=== PATIENT | female | born 1930 | race Caucasian/White ===

== ENCOUNTER 2017-10-09 08:58 | Day surgery (SDC) | payer MEDICARE, BC ==
[~2017-10-09] VITALS: Ht 167.6 cm; Wt 82.5 kg
[~2017-10-09 08:58] MED LIST: ALBU3IS INH; ALBU90OI61 INH; BREO ELLIPTA 11 EACH IH; CALCAVITDA PO; CALMAGZIN; CIPR500 PO; DENAVIR TOP; DOCU100 PO; ESCI10 PO; ESCI5; GLUC500; LEVA.63IS INH; LEVSOD100; LEVSOD125 PO; LORA10 PO; MOVE FREE JOIN1 EACH PO; MULVIT PO; MYRBETRIQ50 MG PO; Norco 5-325 Ta1 EACH PO; OMEP20ER PO; PRED10; SULTRIDS PO; TIOT18 INH; TOCO400 PO; TRAZ50 PO; [UNRECOGNIZED DRUG - OTHER]
[2017-10-09] MEDS ORDERED: GLUC500 (09:46)
[2017-10-09] MEDS ORDERED: Bactrim 400-801 EACH PO (09:47)
[2017-10-09] MEDS ORDERED: ESTR2 PO (09:49)
[2017-10-09] MEDS ORDERED: BREO ELLIPTA 21 EACH (09:49)
[2017-10-09] MEDS ORDERED: AEROECLIPSE II1 EACH (09:49)
[2017-10-09] MEDS ORDERED: Omeprazole20 M1 (09:50)
== END 2017-10-09 10:17 | disposition home or self-care (01) ==
LOC: ORSCSDS 08:58
PROVIDERS: Anesthesiology
PROC: 3E0R33Z Introduction of Anti-inflammatory into Spinal Canal, Percutaneous Approach (ICD-10-PCS; principal; 2017-10-09 10:00)
DX: M51.16 Intervertebral disc disorders with radiculopathy, lumbar region (principal); J45.909 Unspecified asthma, uncomplicated; I10 Essential (primary) hypertension; K21.9 Gastro-esophageal reflux disease without esophagitis; F32.9 Major depressive disorder, single episode, unspecified; Z79.899 Other long term (current) drug therapy
CPT/HCPCS: J1040

== ENCOUNTER 2017-11-20 07:38 | Day surgery (SDC) | payer MEDICARE, BC ==
[~2017-11-20] VITALS: Ht 167.6 cm; Wt 82.7 kg
[~2017-11-20 07:38] MED LIST changes: +AEROECLIPSE II1 EACH; +BREO ELLIPTA 21 EACH; +Bactrim 400-801 EACH PO; +ESTR2 PO; +Omeprazole20 M1
== END 2017-11-20 10:46 | disposition home or self-care (01) ==
LOC: ORSCSDS 07:38
PROVIDERS: Podiatrist Foot & Ankle Surgery
PROC: 0L8W0ZZ Division of Left Foot Tendon, Open Approach (ICD-10-PCS; principal; 2017-11-20 08:45)
PROC: 0L8V0ZZ Division of Right Foot Tendon, Open Approach (ICD-10-PCS; principal; 2017-11-20 08:45)
DX: M20.42 Other hammer toe(s) (acquired), left foot (principal); M20.41 Other hammer toe(s) (acquired), right foot; E03.9 Hypothyroidism, unspecified; J44.9 Chronic obstructive pulmonary disease, unspecified; Z79.899 Other long term (current) drug therapy
CPT/HCPCS: J0171; J0690; J2250; J3010

== ENCOUNTER → 2018-01-25 | Outpatient (CLI) | payer MEDICARE, BC | LOC: LAB 15:00 → LAB SHORT 15:00 | DX: R35.0 Frequency of micturition (principal); R32 Unspecified urinary incontinence | CPT/HCPCS: 87077; 87086; 87186 ==

== ENCOUNTER 2018-03-04 07:33 | Day surgery (SDC) | payer MEDICARE, BC ==
[~2018-03-04] VITALS: Ht 167.6 cm; Wt 80.5 kg
[2018-03-04] MEDS ORDERED: BUSP15 (07:53)
== END 2018-03-04 08:39 | disposition home or self-care (01) ==
LOC: ORSCSDS 07:33
PROVIDERS: Anesthesiology
PROC: 3E0R33Z Introduction of Anti-inflammatory into Spinal Canal, Percutaneous Approach (ICD-10-PCS; principal; 2018-03-04 08:30)
DX: M51.16 Intervertebral disc disorders with radiculopathy, lumbar region (principal); I10 Essential (primary) hypertension; J45.909 Unspecified asthma, uncomplicated; F32.9 Major depressive disorder, single episode, unspecified; K21.9 Gastro-esophageal reflux disease without esophagitis; J44.9 Chronic obstructive pulmonary disease, unspecified; Z79.899 Other long term (current) drug therapy
CPT/HCPCS: J1040

== ENCOUNTER → 2018-11-27 | Outpatient (CLI) | payer MEDICARE, BC ==
[~2018-11-27] MED LIST changes: +BUSP15
[2018-11-27 11:34] LABS: BASOPHILS ABSOLUTE AUTO 0.05 K/mm3 (0.00-0.23); BASOPHILS PERCENT AUTO 1 % (0-2); EOSINOPHILS PERCENT AUTO 8 % (0-6); Hematocrit 34.9 % (33.0-51.0); Hemoglobin 11.6 g/dL (11.5-16.0); IMMATURE GRAN ABSOLUTE AUTO 0.01 K/mm3 (0.00-0.10); IMMATURE GRAN PERCENT AUTO 0 % (0-1); LYMPHOCYTES ABSOLUTE AUTO 1.39 K/mm3 (0.84-5.20); LYMPHOCYTES PERCENT AUTO 27 % (21-46); MONOCYTES ABSOLUTE AUTO 0.53 K/mm3 (0.16-1.47); MONOCYTES PERCENT AUTO 10 % (4-13); Mean Corpuscular HGB 31.9 pg (26.0-34.0); Mean Corpuscular HGB Conc 33.2 g/dL (31.5-36.5); Mean Corpuscular Volume 96 fL (80-100); Mean Platelet Volume 9.8 fL (9.1-12.4); NEUTROPHILS PERCENT AUTO 53 % (41-73); Platelet Count 210 K/mm3 (150-400); RDW Coefficient Variation 12.4 % (11.7-14.2); RDW Standard Deviation 43.1 fL (35.1-46.3); Red Blood Cell Count 3.64 M/mm3 (3.80-5.20); White Blood Cell Count 5.08 K/mm3 (4.00-11.30)
[2018-11-27 11:51] LABS: Alanine Aminotransfer (ALT/SGP 15 U/L (12-78); Albumin, Blood 3.2 g/dL (3.4-5.0); Albumin/Globulin Ratio 0.9 (0.8-1.8); Alk Phos 56 U/L (40-126); Anion Gap 9 mmol/L (6-16); Aspartate Aminotrans (AST/SGOT 18 U/L (12-37); Bilirubin, Total 0.4 mg/dL (0.1-1.0); Blood Urea Nitrogen 16 mg/dL (8-24); Bun/Creatinine Ratio 22.2 (12.0-20.0); CO2, Blood 28 mmol/L (21-32); CPK Creatine Kinase 74 U/L (26-192); Chloride, Blood 105 mmol/L (98-108); Creatinine, Blood 0.72 mg/dL (0.40-1.00); Free Thyroxine 0.96 ng/dL (0.70-1.60); Globulin, Blood 3.7 g/dL (2.2-4.0); Glomerular Filtration Rate >60 (60-); Glucose, Blood 79 mg/dL (70-99); Potassium, Blood 3.5 mmol/L (3.5-5.5); Sodium, Blood 142 mmol/L (136-145); Thyroid Stimulating Hormone 2.862 uIU/mL (0.360-4.800); Total Protein, Blood 6.9 g/dL (6.4-8.2)
[2018-11-27 11:52] LABS: Troponin I <0.017 ng/mL (0.000-0.040)
== END | disposition home or self-care (01) ==
LOC: LAB EV 11:28 → LAB SHORT 11:28
PROVIDERS: General Practice
DX: E03.9 Hypothyroidism, unspecified (principal); R06.00 Dyspnea, unspecified
CPT/HCPCS: 80053; 82550; 83880; 84439; 84443; 84484; 85025

== ENCOUNTER 2019-01-20 16:38 | Emergency (ER) | payer MEDICARE, BC ==
[~2019-01-20] VITALS: Ht 167.6 cm; Wt 79.4 kg
[2019-01-20] MEDS ORDERED: LEVA1.25 INH (17:42)
[2019-01-20 17:44] LABS: BASOPHILS ABSOLUTE AUTO 0.06 K/mm3 (0.00-0.23); BASOPHILS PERCENT AUTO 1 % (0-2); EOSINOPHILS ABSOLUTE AUTO 0.57 K/mm3 (0.00-0.68); EOSINOPHILS PERCENT AUTO 10 % (0-6); Hematocrit 40.2 % (33.0-51.0); Hemoglobin 12.7 g/dL (11.5-16.0); IMMATURE GRAN ABSOLUTE AUTO 0.01 K/mm3 (0.00-0.10); IMMATURE GRAN PERCENT AUTO 0 % (0-1); LYMPHOCYTES ABSOLUTE AUTO 1.54 K/mm3 (0.84-5.20); LYMPHOCYTES PERCENT AUTO 26 % (21-46); MONOCYTES ABSOLUTE AUTO 0.72 K/mm3 (0.16-1.47); MONOCYTES PERCENT AUTO 12 % (4-13); Mean Corpuscular HGB 31.4 pg (26.0-34.0); Mean Corpuscular HGB Conc 31.6 g/dL (31.5-36.5); Mean Corpuscular Volume 100 fL (80-100); Mean Platelet Volume 10.1 fL (9.1-12.4); NEUTROPHILS ABSOLUTE AUTO 3.08 K/mm3 (1.96-9.15); NEUTROPHILS PERCENT AUTO 52 % (41-73); Platelet Count 207 K/mm3 (150-400); RDW Coefficient Variation 12.5 % (11.7-14.2); Red Blood Cell Count 4.04 M/mm3 (3.80-5.20); White Blood Cell Count 5.98 K/mm3 (4.00-11.30)
[2019-01-20 18:05] LABS: Alanine Aminotransfer (ALT/SGP 18 U/L (12-78); Albumin, Blood 3.5 g/dL (3.4-5.0); Albumin/Globulin Ratio 0.9 (0.8-1.8); Alk Phos 73 U/L (50-136); Anion Gap 1 mmol/L (6-16); Aspartate Aminotrans (AST/SGOT 22 U/L (12-37); Bilirubin, Total 0.2 mg/dL (0.1-1.0); Blood Urea Nitrogen 17 mg/dL (8-24); Bun/Creatinine Ratio 20.6 (12.0-20.0); CO2, Blood 36 mmol/L (21-32); Calcium, Blood 9.4 mg/dL (8.5-10.1); Chloride, Blood 104 mmol/L (98-108); Creatinine, Blood 0.82 mg/dL (0.40-1.00); Glomerular Filtration Rate >60 (60-); Glucose, Blood 96 mg/dL (70-99); Potassium, Blood 4.3 mmol/L (3.5-5.5); Sodium, Blood 141 mmol/L (136-145); Total Protein, Blood 7.5 g/dL (6.4-8.2); Troponin I <0.015 ng/mL (0.000-0.040)
[2019-01-20] MEDS ORDERED: Prednisone20 MG PO (19:34)
== END 2019-01-20 19:50 | disposition home or self-care (01) ==
LOC: ER 16:38
PROVIDERS: Emergency Medicine
DX: J44.1 Chronic obstructive pulmonary disease with (acute) exacerbation (principal); Z99.81 Dependence on supplemental oxygen; Z88.8 Allergy status to other drugs, medicaments and biological substances; Z91.011 Allergy to milk products; Z79.899 Other long term (current) drug therapy
CPT/HCPCS: 71046; 80053; 84484; 85025; 93005; 93010; 96374; 99284-25; J2930

== ENCOUNTER → 2019-07-27 | Outpatient (CLI) | payer MEDICARE, BC ==
[~2019-07-27] MED LIST changes: +LEVA1.25 INH; +Prednisone20 MG PO
== END | disposition home or self-care (01) ==
LOC: LAB 23:00 → LAB SHORT 23:00
DX: J44.9 Chronic obstructive pulmonary disease, unspecified (principal)
CPT/HCPCS: 87070; 87077; 87186; 87205

== ENCOUNTER 2019-07-28 08:19 | Day surgery (SDC) | payer MEDICARE, BC ==
[~2019-07-28] VITALS: Ht 165.1 cm; Wt 83.3 kg
== END 2019-07-28 09:54 | disposition home or self-care (01) ==
LOC: ORSCSDS 08:19
PROVIDERS: Anesthesiology
PROC: 3E0R33Z Introduction of Anti-inflammatory into Spinal Canal, Percutaneous Approach (ICD-10-PCS; principal; 2019-07-28 09:45)
DX: M54.16 Radiculopathy, lumbar region (principal); Z99.81 Dependence on supplemental oxygen; F41.8 Other specified anxiety disorders; E03.9 Hypothyroidism, unspecified; E66.9 Obesity, unspecified; Z68.30 Body mass index [BMI] 30.0-30.9, adult; Z79.899 Other long term (current) drug therapy
CPT/HCPCS: J1040

== ENCOUNTER 2020-03-23 08:54 | Day surgery (SDC) | payer MEDICARE, BC ==
[~2020-03-23] VITALS: Ht 167.6 cm; Wt 83.0 kg
[~2020-03-23 08:54] MED LIST changes: +BUSP10 PO; -BUSP15; +Dyazide 37.5-21 EACH PO
--- NOTE | 2020-03-23 10:51 | NUR ---
PT RETURNED TO RECOVERY ROOM IN [facility] WITH RIGHT TR BAND/WRIST BOARD IN PLACE. RIGHT RADIAL TR BAND SITE SOFT NON-TENDER WITH NO HEMATOMA, NO PULSATILE BLEEDING. PT DENIES CP. PT'S PARTNER IN ROOM. CALL LIGHT IN REACH. PT DRINKING COFFEE.
--- NOTE | 2020-03-23 11:24 | NUR ---
DR. LOAIZA IN ROOM TO SEE PT.
--- NOTE | 2020-03-23 12:48 | NUR ---
9 CC OF AIR REMOVED OVER 10 MIN OUT OF NOW DEFLATED RIGHT TR BAND. RIGHT RADIAL SITE SOFT NON-TENDER WITH NO HEMATOMA, NO PULSATILE BLEEDING. DISCHARGE INSTRUCTIONS REVIEWED ALL QEUSTIONS ANSWERED.
--- NOTE | 2020-03-23 13:46 | NUR ---
NO CHANGES TO DEFLATED RIGHT TR BAND SITE. DEFLATED RIGHT TR BAND REMOVED AND POLYMEM PLACED OVER RIGHT RADIAL SITE WITH WRIST BOARD IN PLACE. 20 G IV DISCONTINUED FROM LEFT AC WITH INTACT CANNULA. PT ESCORTED OUT VIA WHEELCHAIR ESCORT.
== END 2020-03-23 13:45 | disposition home or self-care (01) ==
LOC: MHTC 08:54
PROC: B201YZZ Plain Radiography of Multiple Coronary Arteries using Other Contrast (ICD-10-PCS; principal; 2020-03-23)
PROC: 4A023N7 Measurement of Cardiac Sampling and Pressure, Left Heart, Percutaneous Approach (ICD-10-PCS; principal; 2020-03-23)
DX: Z01.810 Encounter for preprocedural cardiovascular examination (principal); I08.3 Combined rheumatic disorders of mitral, aortic and tricuspid valves; J44.9 Chronic obstructive pulmonary disease, unspecified; Z99.81 Dependence on supplemental oxygen; E03.9 Hypothyroidism, unspecified; Z79.899 Other long term (current) drug therapy; Z88.1 Allergy status to other antibiotic agents; Z91.011 Allergy to milk products
CPT/HCPCS: 93454; 99152; 99153; C1769; C1894; J1644; J2250; J3010; J7030; Q9967